=== PATIENT | female | born 1960 | race Caucasian/White ===

== ENCOUNTER 2018-09-28 20:07 | Emergency (ER) | payer OTHER, MEDICAID ==
[2018-09-28] MEDS ORDERED: HYDROCODONE/APAP (5/325) TAB PO (22:00)
[2018-09-28] MEDS: ACETAMINOPHEN 500 MG TAB PO (22:32)
== END 2018-09-29 01:19 | disposition home or self-care (01) ==
LOC: FTE 09-29 01:19
DX: S06.0X0A Concussion without loss of consciousness, initial encounter (principal); I10 Essential (primary) hypertension; E11.9 Type 2 diabetes mellitus without complications; S10.93XA Contusion of unspecified part of neck, initial encounter; S20.219A Contusion of unspecified front wall of thorax, initial encounter; M62.838 Other muscle spasm; Y04.8XXA Assault by other bodily force, initial encounter
CPT/HCPCS: 70450; 71046; 72040; 99284-25

== ENCOUNTER 2019-02-27 10:41 | Emergency (ER) | payer OTHER ==
[2019-02-27] MEDS: ACETAMINOPHEN 500 MG TAB PO (11:11)
== END 2019-02-27 14:42 | disposition home or self-care (01) ==
LOC: FTE 14:42
DX: S92.511A Displaced fracture of proximal phalanx of right lesser toe(s), initial encounter for closed fracture (principal); I10 Essential (primary) hypertension; E11.9 Type 2 diabetes mellitus without complications; W22.8XXA Striking against or struck by other objects, initial encounter; Y92.9 Unspecified place or not applicable
CPT/HCPCS: 73630; 99283-25

== ENCOUNTER 2019-04-03 15:12 | Emergency (ER) | payer OTHER | END 2019-04-03 15:56 | disposition home or self-care (01) | LOC: E/R 15:56 | DX: J30.2 Other seasonal allergic rhinitis (principal); I10 Essential (primary) hypertension | CPT/HCPCS: 99283; Z7502 ==